=== PATIENT | male | born 1965 | race Asian ===

== ENCOUNTER 2023-02-24 17:42 | Emergency (ER) | payer OTHER ==
[~2023-02-24] VITALS: Ht 167.6 cm; Wt 62.6 kg
[2023-02-24 20:33] VITALS: BP 122/74; TEMP 98.2
== END 2023-02-24 20:33 | disposition home or self-care (01) ==
LOC: ED 17:42
DX: M54.16 Radiculopathy, lumbar region (principal); M54.9 Dorsalgia, unspecified
CPT/HCPCS: 81002; 96372; 99283; J1885; J2360